=== PATIENT | male | born 1990 | race Asian ===

== ENCOUNTER 2020-08-10 14:05 | Emergency (ER) | payer BC ==
[~2020-08-10] VITALS: Ht 185.4 cm; Wt 83.9 kg
[2020-08-10 14:14] VITALS: TEMP 97.9
[2020-08-10 17:56] VITALS: BP 135/62
== END 2020-08-10 17:56 | disposition home or self-care (01) ==
LOC: ED 14:05
PROC: 0RSKXZZ Reposition Left Shoulder Joint, External Approach (ICD-10-PCS; principal; 2020-08-10)
DX: S43.085A Other dislocation of left shoulder joint, initial encounter (principal); X50.9XXA Other and unspecified overexertion or strenuous movements or postures, initial encounter; Y93.39 Activity, other involving climbing, rappelling and jumping off; Y92.89 Other specified places as the place of occurrence of the external cause
CPT/HCPCS: 96372; 96374; 96375; 99284; J1885; J2175; J2550

== ENCOUNTER 2021-11-13 06:08 | Emergency (ER) | payer BC ==
[~2021-11-13] VITALS: Ht 185.4 cm; Wt 83.9 kg
[2021-11-13 06:30] LABS: PLATELET COUNT 200 K/uL (142-355)
[2021-11-13 06:39] LABS: POTASSIUM 4.4 mmol/L (3.6-5.2)
[2021-11-13 06:57] VITALS: BP 108/48; TEMP 92.2
== END 2021-11-13 07:30 | disposition short-term general hospital (02) ==
LOC: ED 06:08
PROVIDERS: Emergency Medicine
PROC: 0T9B70Z Drainage of Bladder with Drainage Device, Via Natural or Artificial Opening (ICD-10-PCS; principal; 2021-11-13)
PROC: 30233N1 Transfusion of Nonautologous Red Blood Cells into Peripheral Vein, Percutaneous Approach (ICD-10-PCS; 2021-11-13)
DX: S21.131A Puncture wound without foreign body of right front wall of thorax without penetration into thoracic cavity, initial encounter (principal); S31.139A Puncture wound of abdominal wall without foreign body, unspecified quadrant without penetration into peritoneal cavity, initial encounter; S21.239A Puncture wound without foreign body of unspecified back wall of thorax without penetration into thoracic cavity, initial encounter; S41.132A Puncture wound without foreign body of left upper arm, initial encounter; S41.131A Puncture wound without foreign body of right upper arm, initial encounter; X95.9XXA Assault by unspecified firearm discharge, initial encounter; Y92.89 Other specified places as the place of occurrence of the external cause
CPT/HCPCS: 36430; 51702; 80053; 81000; 85027; 86850; 86900; 86901; 86922; 96360; 96361; 99285; P9016